=== PATIENT | female | born 1955 | race Caucasian/White ===

== ENCOUNTER → 2016-12-10 | Outpatient (CLI) | payer BC ==
--- NOTE | 2016-12-10 09:25 | MM ---
Reason for exam: additional evaluation requested from prior study. Last mammogram was performed 1 year ago. History: Patient is postmenopausal and has history of breast cancer at age 44. Family history of breast cancer in daughter at age 41. Benign lumpectomy of the right breast, April 25, 2001. Stereotactic core biopsy of the right breast, April 13, 2001. Core biopsy of the right breast. Radiation therapy of the right breast. Took tamoxifen for 5 years beginning at age 45. Physical Findings: Nurse did not find any significant physical abnormalities on exam. MG 3D Diag Mammo W/Cad ROSE Bilateral CC and MLO view(s) were taken. ML, spot compression CC, and spot compression MLO view(s) were taken of the left breast. Prior study comparison: December 11, 2015, bilateral MG diagnostic mammo w CAD ROSE. December 09, 2014, bilateral MG screening mammo w CAD. The breast tissue is heterogeneously dense. This may lower the sensitivity of mammography. No suspicious abnormality. Right post surgical change. No significant new findings when compared with previous films. These results were verbally communicated with the patient and result sheet given to the patient on 12/10/16. ASSESSMENT: Incomplete: need additional imaging evaluation, BI-RAD 0 RECOMMENDATION: Ultrasound of the right breast. (targeted for new focal asymmetry)
--- NOTE | 2016-12-10 09:28 | USB ---
Reason for exam: additional evaluation requested from abnormal screening. History: Patient is postmenopausal and has history of breast cancer at age 44. Family history of breast cancer in daughter at age 41. Benign lumpectomy of the right breast, April 25, 2001. Stereotactic core biopsy of the right breast, April 13, 2001. Core biopsy of the right breast. Radiation therapy of the right breast. Took tamoxifen for 5 years beginning at age 45. US Breast RT Right breast ultrasound includes all four quadrants, the retroareolar region and axilla. Finding demonstrates a 5 x 4 x 3mm irregular, solid, hypoechoic lesion with shadowing at 10 o'clock. These results were verbally communicated with the patient and result sheet given to the patient on 12/10/16. ASSESSMENT: Suspicious, BI-RAD 4 RECOMMENDATION: Ultrasound core biopsy of the right breast. Called Dr. Bourgeois with mammographic findings and has scheduled an appointment for the patient for 12/30/16 at 10:[address] Smith. Right ultrasound core biopsy scheduled for 12/16/16 at 8:00. PRELIMINARY REPORT CALLED AND FAXED TO DR. SMITH ON 12/10/16/TP.
== END | disposition home or self-care (01) ==
LOC: RADMAMWWP 06:51
PROVIDERS: ATTEND Obstetrics & Gynecology
DX: N64.4 Mastodynia (principal); Z85.3 Personal history of malignant neoplasm of breast; Z80.3 Family history of malignant neoplasm of breast
CPT/HCPCS: 76641; G0204; G0279

== ENCOUNTER → 2016-12-13 | Outpatient (CLI) | payer BC ==
--- NOTE | 2016-12-13 12:00 | BD ---
EXAMINATION TYPE: MG DEXA axial skeleton. DATE OF EXAM: 12/13/2016 CLINICAL HISTORY: Postmenopausal female. Height: 66.5 Weight: 149 FRAX RISK QUESTIONS: Alcohol (3 or more units per day): no Family History (Parent hip fracture): no Glucocorticoids (More than 3mos): not now (Ex: prednisone, prednisolone, methylprednisolone, dexamethasone, and hydrocortisone). History of Fracture in Adulthood: no Secondary Osteoporosis: 1. Type 1 Diabetes: no 2. Hyperthyroidism: no 3. Menopause before 45: no, 46 4. Malnutrition: no 5. Chronic liver disease: no Rheumatoid Arthritis: no Current Tobacco Use: no RISK FACTORS HISTORY OF: Surgery to Spine: yes When: in early 20's for herniated disc L5/sacrum Family History of Osteoporosis: no Active: yes Diet low in dairy products/other sources of calcium: at least one serving a day Postmenopausal woman: yes Take estrogen and/or progesterone medications: no Lost more than 2 inches in height since high school: no Frequent falls: no Poor Health: no Hyperparathyroidism: no Adrenal Insufficiency: no MEDICATIONS: Prednisone or other steroids: not now How Long: about 18 months Thyroid Medications: no Osteoporosis Medications: no Additional Medications: Lantus pen, Humalog pen, metformin, Januvia, benazepril, atorvastatin, fenofi brate Additional History: Breast CA age 44; Antineoplastic age 46-50, Type II Diabetic, polymyalgia rheumat ica EXAM MEASUREMENTS: Bone mineral densitometry was performed using the [employer] System. Bone mineral density as measured about the Lumbar spine is: ----- L1-L4(G/cm2): 1.181 T Score Values are as follows: ----- L2: 0.1 ----- L3: 0.9 ----- L4: -0.7 ----- L1-L4: 0.0 Bone mineral density BASELINE Bone mineral density about the R hip (g/cm2): 0.841 Bone mineral density about the L hip (g/cm2): 0.863 T Score values are as follows: -----R Neck: -1.4 -----L Neck: -1.3 -----R Total: -0.4 -----L Total: -0.5 Bone mineral density BASELINE IMPRESSION: Osteopenia (T Score between -2.5 and -1) as noted by T score values There is slightly increased risk of fracture and the patient may be considered for treatment. Re-Screen 2-5 years. NOTE: T-SCORE=SD OF THE YOUNG ADULT MEAN.
== END | disposition home or self-care (01) ==
LOC: RADBDWWP 07:11
PROVIDERS: ATTEND Family Medicine
DX: M85.88 Other specified disorders of bone density and structure, other site (principal); Z78.0 Asymptomatic menopausal state
CPT/HCPCS: 77080

== ENCOUNTER → 2016-12-16 | Day surgery (SDC) | payer BC ==
[2016-12-16 07:33] VITALS: RESP 16; BMI 23.1
[2016-12-16 09:16] VITALS: BP 129/72; PULSE 89; TEMP 97.9
--- NOTE | 2016-12-16 09:58 | USB ---
EXAMINATION TYPE: US biopsy breast VAD RT, MG diagnostic mammo RT wo CAD DATE OF EXAM: 12/16/2016 CLINICAL HISTORY: R92.8 ABN Mammogram. TECHNIQUE: Ultrasound guided core biopsy of right breast. COMPARISON: Prior mammograms and ultrasounds. FINDINGS: The procedure of ultrasound guided core biopsy was explained to the patient. Benefits, alternatives, and risks were discussed. An informed consent was then obtained. Preprocedural scanning demonstrates a 0.4 x 0.3 cm hypoechoic shadowing mass. Additional similar appearing hypoechoic shadowing mass seen approximately 2 cm medial was present measuring 3 x 3 mm. The patient was placed in supine positioning for imaging and for the procedure. The overlying skin was prepped and draped in usual sterile fashion. 20 cc of 1% lidocaine without epinephrine was used as anesthetic into the skin and 10 cc of lidocaine with epinephrine was utilized as anesthetic into the subcutaneous tissue up to area of concern in the right breast. A clyde was made with surgical scalpel. Under ultrasound guidance, a 12-gauge vacuum assisted biopsy gun device was used to obtain 6 core samples. Following this, a biopsy coil-shaped biopsy marker was left in lesion. The patient tolerated the procedure well without any immediate complication. The patient was kept in the radiology department for short stay after the procedure and then discharged home in stable condition. Postprocedural 2 view mammogram was obtained demonstrating appropriate placement of the biopsy marker. IMPRESSION: 1. Successful, uncomplicated ultrasound guided core biopsy of a highly suspicious shadowing irregular mass in the right breast with adjacent 3 mm similar appearing mass, full pathology results to follow. Recommendations for the second mass will be based on the biopsy results of the biopsied index mass. Pathology Results: Benign BREAST, RIGHT, ULTRASOUND GUIDED CORE BIOPSY: BENIGN BREAST WITH DENSE STROMAL FIBROSIS, FOCAL DUCT HYPERPLASIA AND CALCIFICATIONS. FOCAL MULTINUCLEATED GIANT CELLS. Recommendation Follow up mammogram and ultrasound of the right breast in 6 months. RAIN
== END ==
LOC: RADUSWWP 06:53
PROVIDERS: ATTEND Surgery
DX: N60.31 Fibrosclerosis of right breast (principal); R92.1 Mammographic calcification found on diagnostic imaging of breast; R92.8 Other abnormal and inconclusive findings on diagnostic imaging of breast; Z92.3 Personal history of irradiation
CPT/HCPCS: 88305; 19083; G0206; A4648; J2001

== ENCOUNTER → 2017-06-16 | Outpatient (CLI) | payer BC ==
--- NOTE | 2017-06-16 10:34 | MM ---
Reason for exam: follow-up at short interval from prior study. Last mammogram was performed 6 months ago. History: Patient is postmenopausal and has history of breast cancer at age 44. Family history of breast cancer in daughter at age 41. Benign US biopsy breast VAD RT of the right breast, December 16, 2016. Benign lumpectomy of the right breast, April 25, 2001. Stereotactic core biopsy of the right breast, April 13, 2001. Core biopsy of the right breast. Radiation therapy of the right breast. Took tamoxifen for 5 years beginning at age 45. Physical Findings: Nurse did not find any significant physical abnormalities on exam. MG 3D Diag Mammo W/Cad RT CC and MLO view(s) were taken of the right breast. Prior study comparison: December 16, 2016, right breast MG diagnostic mammo RT wo CAD. December 10, 2016, bilateral MG 3d diag mammo w/cad ROSE. December 10, 2016, right breast US breast RT. December 11, 2015, bilateral MG diagnostic mammo w CAD ROSE. December 09, 2014, bilateral MG screening mammo w CAD. The breast tissue is heterogeneously dense. This may lower the sensitivity of mammography. Finding #1: Architectural distortion in the lower inner quadrant, posterior position of the right breast. Finding #2: There are typically benign vascular, round calcifications in the right breast. Previous mammotome biopsy in the right breast. There is no discrete abnormality. These results were verbally communicated with the patient and result sheet given to the patient on 06/16/17. ASSESSMENT: Benign, BI-RAD 2 RECOMMENDATION: Follow-up diagnostic mammogram of both breasts in 6 months. Back on schedule.
--- NOTE | 2017-06-16 10:34 | USB ---
Reason for exam: follow-up at short interval from prior study. History: Patient is postmenopausal and has history of breast cancer at age 44. Family history of breast cancer in daughter at age 41. Benign US biopsy breast VAD RT of the right breast, December 16, 2016. Benign lumpectomy of the right breast, April 25, 2001. Stereotactic core biopsy of the right breast, April 13, 2001. Core biopsy of the right breast. Radiation therapy of the right breast. Took tamoxifen for 5 years beginning at age 45. US Breast RT Right breast ultrasound includes all four quadrants, the retroareolar region and axilla. Finding demonstrates a 0.4 x 0.1 x 0.2cm lesion too small to characterize at 10 o'clock. These results were verbally communicated with the patient and result sheet given to the patient on 06/16/17. ASSESSMENT: Benign, BI-RAD 2 RECOMMENDATION: Follow-up diagnostic mammogram of both breasts in 6 months. Back on schedule.
== END | disposition home or self-care (01) ==
LOC: RADMAMWWP 08:48
PROVIDERS: ATTEND Surgery
DX: R92.8 Other abnormal and inconclusive findings on diagnostic imaging of breast (principal)
CPT/HCPCS: 77065; 76641; G0279

== ENCOUNTER → 2018-01-12 | Outpatient (CLI) | payer BC ==
--- NOTE | 2018-01-12 14:19 | MM ---
Reason for exam: additional evaluation requested from prior study. Last mammogram was performed 7 months ago. History: Patient is postmenopausal and has history of breast cancer at age 44. Family history of breast cancer in daughter at age 41. Benign US biopsy breast VAD RT of the right breast, December 16, 2016. Benign lumpectomy of the right breast, April 25, 2001. Stereotactic core biopsy of the right breast, April 13, 2001. Core biopsy of the right breast. Radiation therapy of the right breast. Took tamoxifen for 5 years beginning at age 45. Physical Findings: Nurse did not find any significant physical abnormalities on exam. MG 3D Diag Mammo W/Cad ROSE Bilateral CC and MLO view(s) were taken. Prior study comparison: June 16, 2017, right breast MG 3d diag mammo w/cad RT. December 16, 2016, right breast MG diagnostic mammo RT wo CAD. The breast tissue is heterogeneously dense. This may lower the sensitivity of mammography. Previous mammotome biopsy in the right breast. Post surgical and post therapy changes in the right breast. No significant new findings when compared with previous films. These results were verbally communicated with the patient and result sheet given to the patient on 01/12/18. ASSESSMENT: Benign, BI-RAD 2 RECOMMENDATION: Routine screening mammogram of both breasts in 1 year.
--- NOTE | 2018-01-12 16:54 | US ---
EXAMINATION TYPE: US pelvic limited DATE OF EXAM: 01/12/2018 COMPARISON: NONE CLINICAL HISTORY: 62-year-old female R10.2 PELVIC AND PERINEAL PAIN. Left side pain. Total hysterect josh in2002. TECHNIQUE: Transabdominal (TA). Date of LMP: Hysterectomy FINDINGS: The uterus and ovaries are surgically absent. Bowel is seen in the bilateral adnexa. No free fluid in the pelvis. Bladder- Wnl. Bilateral jets seen. IMPRESSION: Status post hysterectomy and bilateral salpingo-oophorectomy. No evident adnexal abnormality or cul-d e-sac free fluid. Bladder shows no gross abnormality. Both ureteral jets are seen.
== END | disposition home or self-care (01) ==
LOC: RADUSWWP 12:06
PROVIDERS: ATTEND Family Medicine
DX: Z08 Encounter for follow-up examination after completed treatment for malignant neoplasm (principal); R10.2 Pelvic and perineal pain; Z85.3 Personal history of malignant neoplasm of breast; Z90.710 Acquired absence of both cervix and uterus; Z98.890 Other specified postprocedural states
CPT/HCPCS: 76857; 77062; 77066

== ENCOUNTER 2019-01-05 07:34 | Day surgery (SDC) | payer BC ==
[~2019-01-05 07:34] MED LIST: DEXAMETHASONE SOD PHOSPHATE 10 MG/ML 1 ML VIAL IV ONE; LACTATED RINGERS 1,000 ML IV SCH; LIDOCAINE 1% 20 ML VIAL (10MG/ML) FOR IV START INTRADERMA PRN
[2019-01-05 07:50] VITALS: RESP 16; TEMP 97.8
[2019-01-05 08:04] LABS: Glucose,Whole Blood 87 mg/dL (75-99)
[2019-01-05] MEDS ORDERED: DEXAMETHASONE SOD PHOSPHATE 10 MG/ML 1 ML VIAL IV ONE (08:05)
[2019-01-05] MEDS ORDERED: ONDANSETRON 4 MG/2 ML VIAL IVP ONE (08:05)
[2019-01-05] MEDS ORDERED: PROPOFOL 10 MG/ML 20 ML VIAL IV ONE (08:19)
[2019-01-05] MEDS ORDERED: LIDOCAINE 1% INJ 10MG/ML (20 ML MDV) ONE (08:19)
--- NOTE | 2019-01-05 08:33 | P.PCN ---
Date of Procedure: 01/05/19 Procedure(s) Performed: BRIEF HISTORY: Patient is a 63-year-old, pleasant female scheduled for an upper endoscopy as a part of evaluation of intermittent dysphagia to solids for the last 2 years duration. For the last 6 months he has been progressively getting worse and has symptoms almost on a daily basis. She is hence scheduled for an upper endoscopy with possible dilation today. PROCEDURE PERFORMED: Esophagogastroduodenoscopy with biopsy and dilation. PREOPERATIVE DIAGNOSIS: Progressive dysphagia to solids of 2 years duration. IV sedation per anesthesia. PROCEDURE: After informed consent was obtained, the patient was brought into the endoscopy unit. IV sedation was administered by Anesthesia under continuous monitoring. Initially the Olympus GIF-140 video endoscope was inserted into the mouth. Esophagus intubated without any difficulty. It was gradually advanced into the stomach and duodenum and carefully examined. The bulb and the second part of the duodenum appeared normal. The scope at this time was withdrawn to the stomach, adequately insufflated with air, and upon careful examination, mucosa of the antrum, body, cardia and the fundus appeared normal. The scope was then withdrawn into the esophagus. The GE junction was located at 39 cm from the incisors. There was a distal esophageal Schatzki's ring identified and this was dilated using 15-16.5 mm TTS balloon in a sequential fashion for 60 seconds. There was oozing noted at the end of dilation and hence further dilation was not performed. The rest of the esophagus appeared normal. There were no erosions or ulcerations seen, multiple biopsies were done from the distal esophagus to evaluate for years of age esophagitis and the patient tolerated the procedure well. IMPRESSION: 1. Distal esophageal Schatzki's ring status post balloon dilation using 15-16.5 mm TTS balloon as described above RECOMMENDATIONS: The findings of this examination were discussed with the patient as well as a family. She was advised to follow with the biopsy results. In the meantime she will remain on a clear liquid diet today. She'll be started on Prilosec 20 mg daily and will she'll be seen in office in 3-4 weeks.
[2019-01-05 08:56] VITALS: BP 122/63; PULSE 63
== END 2019-01-05 09:07 | disposition home or self-care (01) ==
LOC: ORWHC2ENDO 07:34
PROVIDERS: ATTEND Internal Medicine Gastroenterology
DX: K22.2 Esophageal obstruction (principal); K20.9 Esophagitis, unspecified; I10 Essential (primary) hypertension; E78.5 Hyperlipidemia, unspecified; E11.9 Type 2 diabetes mellitus without complications; Z88.5 Allergy status to narcotic agent; Z88.6 Allergy status to analgesic agent; Z88.8 Allergy status to other drugs, medicaments and biological substances; Z79.4 Long term (current) use of insulin; Z79.899 Other long term (current) drug therapy
CPT/HCPCS: 88305; 43239; 43249; J1100; J2405; J2001; J2704

== ENCOUNTER → 2019-01-17 | Outpatient (CLI) | payer BC ==
[2019-01-03 16:06] VITALS: BMI 22.2
--- NOTE | 2019-01-17 08:09 | MM ---
Reason for exam: additional evaluation requested from prior study. Last mammogram was performed 1 year ago. History: Patient is postmenopausal and has history of breast cancer at age 44. Family history of breast cancer in daughter at age 41. Benign US biopsy breast VAD RT of the right breast, December 16, 2016. Benign lumpectomy of the right breast, April 25, 2001. Stereotactic core biopsy of the right breast, April 13, 2001. Core biopsy of the right breast. Radiation therapy of the right breast. Took tamoxifen for 5 years beginning at age 45. Physical Findings: Nurse did not find any significant physical abnormalities on exam. MG 3D Diag Mammo W/Cad ROSE Bilateral CC and MLO view(s) were taken. Prior study comparison: January 12, 2018, bilateral MG 3d diag mammo w/cad ROSE. June 16, 2017, right breast MG 3d diag mammo w/cad RT. The breast tissue is heterogeneously dense. This may lower the sensitivity of mammography. Stable benign calcifications. There is no discrete abnormality. Stable post lumpectomy changes are stable. No significant new findings when compared with previous films. These results were verbally communicated with the patient and result sheet given to the patient on 01/17/19. ASSESSMENT: Benign, BI-RAD 2 RECOMMENDATION: Follow-up diagnostic mammogram of both breasts in 1 year.
== END ==
LOC: RADMAMWWP 07:00
PROVIDERS: ATTEND Family Medicine
DX: R92.8 Other abnormal and inconclusive findings on diagnostic imaging of breast (principal)
CPT/HCPCS: 77062; 77066

== ENCOUNTER → 2020-02-01 | Outpatient (CLI) | payer MEDICARE ==
--- NOTE | 2020-02-01 11:07 | MM ---
Reason for exam: additional evaluation requested from prior study. Last mammogram was performed 1 year ago. History: Patient is postmenopausal and has history of breast cancer at age 44. Family history of breast cancer in daughter at age 41. Benign US biopsy breast VAD RT of the right breast, December 16, 2016. Benign lumpectomy of the right breast, April 25, 2001. Stereotactic core biopsy of the right breast, April 13, 2001. Core biopsy of the right breast. Radiation therapy of the right breast. Took tamoxifen for 5 years beginning at age 45. Physical Findings: Nurse did not find any significant physical abnormalities on exam. MG 3D Diag Mammo W/Cad ROSE Bilateral CC and MLO view(s) were taken. Prior study comparison: January 17, 2019, bilateral MG 3d diag mammo w/cad ROSE. January 12, 2018, bilateral MG 3d diag mammo w/cad ROSE. The breast tissue is heterogeneously dense. This may lower the sensitivity of mammography. Previous mammotome biopsy in the right breast. Asymmetric breast tissue greater in the left breast. Post surgical changes in the right breast. No significant new findings when compared with previous films. These results were verbally communicated with the patient and result sheet given to the patient on 02/01/20. ASSESSMENT: Benign, BI-RAD 2 RECOMMENDATION: Routine screening mammogram of both breasts in 1 year.
--- NOTE | 2020-02-01 15:35 | BD ---
EXAMINATION TYPE: Axial Bone Density DATE OF EXAM: 02/01/2020 COMPARISON: NONE CLINICAL HISTORY: Height: 5 FT 6 1/2 IN Weight: 145 FRAX RISK QUESTIONS: Alcohol (3 or more units per day): NO Family History (Parent hip fracture): NO Glucocorticoids (More than 3mos): YES (Ex: prednisone, prednisolone, methylprednisolone, dexamethasone, and hydrocortisone). History of Fracture in Adulthood: NO Secondary Osteoporosis: 1. Type 1 Diabetes: NO 2. Hyperthyroidism: NO 3. Menopause before 45: AGE 46 4. Malnutrition: NO 5. Chronic liver disease: NO Rheumatoid Arthritis: NO Current Tobacco Use: NO RISK FACTORS HISTORY OF: Surgery to Spine/Hip(right/left)/Wrist (right/left): L5 S1 SURG When: IN HER 20S Family History of Osteoporosis: NO Active: YES Postmenopausal woman: TOTAL HYST AGE 47 Take estrogen and/or progesterone medications: TOOK HRT APPROX 3-5 YEARS BEFORE HYST MEDICATIONS: Additional Medications: METFORMIN, BLOOD PRESSURE MEDS, , ATORVASTATIN, INSULIN, Additional History: RT CARPAL TUNNEL SURG NOV 2019 . HISTORY OG BREAST CANCER WITH RADIATION EXAM MEASUREMENTS: Bone mineral densitometry was performed using the [employer] System. Bone mineral density as measured about the Lumbar spine is: ----- L1-L4(G/cm2): 1.234 T Score Values are as follows: ----- L2: 0.7 ----- L3: 0.0 ----- L4: 0.3 ----- L1-L4: 0.4 Bone mineral density has: INCREASED 2.6 % since study of: 2017 Bone mineral density about the R hip (g/cm2): 0.773 Bone mineral density about the L hip (g/cm2): 0.826 T Score values are as follows: -----R Neck: -1.9 -----L Neck: -1.5 -----R Total: -0.6 -----L Total: -0.7 Bone mineral density has: DECREASED -2.4 % since study of: 2017 IMPRESSION: Osteopenia (T Score between -2.5 and -1). There is slightly increased risk of fracture and the patient may be considered for treatment. Re-Screen 2-5 years. NOTE: T-SCORE=SD OF THE YOUNG ADULT MEAN.
== END | disposition home or self-care (01) ==
LOC: RADMAMWWP 09:28
PROVIDERS: ATTEND Obstetrics & Gynecology
DX: R92.8 Other abnormal and inconclusive findings on diagnostic imaging of breast (principal); Z13.820 Encounter for screening for osteoporosis; M85.80 Other specified disorders of bone density and structure, unspecified site
CPT/HCPCS: 77080; 77066; G0279; 77062

== ENCOUNTER 2020-09-14 11:00 | Emergency (ER) | payer MEDICARE ==
[2020-09-14 11:04] VITALS: BP 172/74; PULSE 77; RESP 18; TEMP 98.7
--- NOTE | 2020-09-14 11:48 | ED ---
ENT HPI - General Chief complaint: ENT Stated complaint: ENT Source: patient, EMS Mode of arrival: EMS - History of Present Illness Initial comments: 64-year-old female with history of esophageal foreign body and narrowing of the esophagus presents to emergency per the chief complaint of food stuck in her throat. Patient reports about one hour prior to arrival, she ate an egg followed by some duggan which caused her to have some impaction of the food in her esophagus. She states she attempted to drink some fluids but cannot. She was brought to the ED via EMS. Patient states during the EMS ride, her symptoms improved and she believes only her throat is scratched at this time. She had an esophageal dilation performed about [address] Hicks. She denies any chest pain or discomfort. Denies nausea. - Related Data Home Medications Medication Instructions Recorded Confirmed Atorvastatin [Lipitor] 80 mg PO DAILY 12/10/16 01/05/19 Benazepril HCl 20 mg PO HS 12/10/16 01/05/19 Biotin 10,000 mcg PO Q48H 12/10/16 01/05/19 Fenofibrate [Lofibra] 160 mg PO DAILY 12/10/16 01/05/19 Insulin Lispro [humaLOG Kwikpen] 2 - 4 unit SQ DAILY PRN 12/10/16 01/05/19 Multivitamins, Thera [Multivitamin 1 each PO DAILY 12/10/16 01/05/19 (formulary)] metFORMIN HCL 1,000 mg PO BID 12/10/16 01/05/19 sitaGLIPtin [Januvia] 100 mg PO HS 12/10/16 01/05/19 Insulin Glargine [Lantus] 22 units SQ HS 01/05/19 01/05/19 Allergies Allergy/AdvReac Type Severity Reaction Status Date / Time aspirin Allergy Anaphylaxis Verified 01/05/19 07:51 codeine Allergy Anaphylaxis Verified 01/05/19 07:51 ibuprofen [From Motrin] Allergy Anaphylaxis Verified 01/05/19 07:51 niacin Allergy Rapid Verified 01/05/19 07:51 Heart Rate Review of Systems ROS Statement: Those systems with pertinent positive or pertinent negative responses have been documented in the HPI. ROS Other: All systems not noted in ROS Statement are negative. Past Medical History Past Medical History: Diabetes Mellitus, Hyperlipidemia, Hypertension History of Any Multi-Drug Resistant Organisms: None Reported Past Surgical History: Back Surgery, Hysterectomy Additional Past Surgical History / Comment(s): lumpectomy right breast 2002, with radiation Past Anesthesia/Blood Transfusion Reactions: No Reported Reaction Past Psychological History: No Psychological Hx Reported Smoking Status: Never smoker Past Alcohol Use History: Occasional Past Drug Use History: None Reported General Exam Limitations: no limitations General appearance: alert, in no apparent distress Head exam: Present: atraumatic, normocephalic, normal inspection Eye exam: Present: normal appearance, PERRL, EOMI Pupils: Present: normal accommodation ENT exam: Present: normal exam, normal oropharynx, mucous membranes moist Neck exam: Present: normal inspection, full ROM. Absent: tenderness Respiratory exam: Present: normal lung sounds bilaterally. Absent: respiratory distress, wheezes, rales, rhonchi, stridor, chest wall tenderness, accessory mus tyrese use Cardiovascular Exam: Present: regular rate, normal rhythm, normal heart sounds. Absent: systolic murmur GI/Abdominal exam: Present: soft. Absent: distended, tenderness, guarding, rebound Extremities exam: Present: normal inspection, full ROM, normal capillary refill. Absent: tenderness, pedal edema, joint swelling Back exam: Present: normal inspection, full ROM. Absent: tenderness, CVA tenderness (R), CVA tenderness (L) Neurological exam: Present: alert, oriented X3 Psychiatric exam: Present: normal affect, normal mood Skin exam: Present: warm, dry, intact, normal color Course Vital Signs 09/14/20 11:02 Temperature 98.7 F Pulse Rate 77 Respiratory 18 Rate Blood Pressure 172/74 O2 Sat by Pulse 97 Oximetry Medical Decision Making - Medical Decision Making 64-year-old female with history of esophageal foreign body presents to emergency department with chief complaint of food stuck in her throat. Physical examination is unremarkable. No signs of any respiratory distress. I gave the patient soda and Jell-O. She ate it with without any difficulties. Patient reports the food felt like it was going all the way through to the stomach. She believes there is only a scratch in her throat at this time. I advised her to follow up with GI for repeat dilation and upper GI scope. She is understanding and agreeable. Patient will be discharged with outpatient follow-up. Case discussed with Dr. Rickie Wyman Clinical Impression: Throat discomfort Disposition: HOME SELF-CARE Condition: Stable Instructions (If sedation given, give patient instructions): Esophageal Foreign Body (ED) Additional Instructions: Follow-up with GI. Return to emergency department if symptoms worsen. Is patient prescribed a controlled substance at d/c from ED?: No Referrals: Jhoana Bush MD [Primary Care Provider] - 1-2 days Oxana Hicks MD [STAFF PHYSICIAN] - 1-2 days Time of Disposition: 11:48
== END 2020-09-14 11:53 | disposition home or self-care (01) ==
LOC: EC 11:00
DX: R07.0 Pain in throat (principal); E11.9 Type 2 diabetes mellitus without complications; E78.5 Hyperlipidemia, unspecified; I10 Essential (primary) hypertension; Z79.4 Long term (current) use of insulin
CPT/HCPCS: 99282

== ENCOUNTER 2020-10-08 07:02 | Day surgery (SDC) | payer MEDICARE ==
[~2020-10-08 07:02] MED LIST changes: -DEXAMETHASONE SOD PHOSPHATE 10 MG/ML 1 ML VIAL IV ONE; +LIDOCAINE 1% (10MG/ML) FOR IV START INTRADERMA PRN; -LIDOCAINE 1% 20 ML VIAL (10MG/ML) FOR IV START INTRADERMA PRN
[2020-10-08 07:44] VITALS: RESP 16; TEMP 97.1
[2020-10-08 07:55] LABS: Glucose,Whole Blood 91 mg/dL (75-99)
[2020-10-08] MEDS ORDERED: PROPOFOL 10 MG/ML 20 ML VIAL IV ONE (08:10)
[2020-10-08] MEDS ORDERED: LIDOCAINE 1% INJ 10MG/ML (20 ML MDV) ONE (08:10)
--- NOTE | 2020-10-08 08:23 | P.PCN ---
Date of Procedure: 10/08/20 Procedure(s) Performed: BRIEF HISTORY: Patient is a 65-year-old, pleasant, white female scheduled for an upper endoscopy as a part of evaluation of progressive dysphagia to solids for the last 2 months duration. She had an upper endoscopy with dilation in 2019 for the same symptoms and was noted to have a distal esophageal Schatzki's ring.. PROCEDURE PERFORMED: Esophagogastroduodenoscopy with balloon dilation and biopsy. PREOPERATIVE DIAGNOSIS: Progressive dysphagia to solids. IV sedation per anesthesia. PROCEDURE: After informed consent was obtained, the patient was brought into the endoscopy unit. IV sedation was administered by Anesthesia under continuous monitoring. Initially the Olympus GIF-140 video endoscope was inserted into the mouth. Esophagus intubated without any difficulty. It was gradually advanced into the stomach and duodenum and carefully examined. The bulb and the second part of the duodenum appeared normal. The scope at this time was withdrawn to the stomach, adequately insufflated with air, and upon careful examination, mucosa of the antrum, body, cardia and the fundus appeared normal. The scope was then withdrawn into the esophagus. Small hiatal hernia noted. The GE junction was located at 40 cm from the incisors. There was a distal esophageal stricture identified at the GE junction and this was dilated using 15 mm TTS balloon for 30 seconds. There was some oozing and mucosal tear noted post dilation. There was diffuse erosions noted in the distal esophagus consistent with LA grade B reflux esophagitis. There was a 5 mm GE junction polyp that was also biopsied. The rest of the esophagus appeared normal seen and the patient tolerated the procedure well. IMPRESSION: 1. Distal esophageal stricture status post balloon dilation 15 mm TTS balloon as described above. 2. LA grade B reflux esophagitis and small hiatal hernia 3. 5 mm GE junction polyp status post biopsy. RECOMMENDATIONS: The findings of this examination were discussed with the patient as well as a family.. She was advised to follow with the biopsy shows. In the meantime will increase the Prilosec to 40 mg daily and follow antireflux measures.
[2020-10-08 08:42] VITALS: BP 139/68; PULSE 66
== END 2020-10-08 08:59 | disposition home or self-care (01) ==
LOC: ORWHC2ENDO 07:02
PROVIDERS: ATTEND Internal Medicine Gastroenterology
DX: K29.50 Unspecified chronic gastritis without bleeding (principal); K44.9 Diaphragmatic hernia without obstruction or gangrene; K22.2 Esophageal obstruction; K21.00 Gastro-esophageal reflux disease with esophagitis, without bleeding; I10 Essential (primary) hypertension; E78.5 Hyperlipidemia, unspecified; E11.9 Type 2 diabetes mellitus without complications; Z85.3 Personal history of malignant neoplasm of breast; Z79.4 Long term (current) use of insulin; Z79.899 Other long term (current) drug therapy; Z88.6 Allergy status to analgesic agent; Z88.5 Allergy status to narcotic agent; Z88.8 Allergy status to other drugs, medicaments and biological substances
CPT/HCPCS: 88305; 43239; 43249; J2001; J2704; C1726

== ENCOUNTER 2020-11-14 07:52 | Day surgery (SDC) | payer MEDICARE ==
[2020-11-13 09:02] VITALS: BMI 22.7
[2020-11-14 08:31] VITALS: TEMP 97.6
[2020-11-14 08:31] LABS: Glucose,Whole Blood 106 mg/dL (75-99)
[2020-11-14] MEDS ORDERED: PROPOFOL 10 MG/ML 20 ML VIAL IV ONE (08:43)
--- NOTE | 2020-11-14 08:55 | P.PCN ---
Date of Procedure: 11/14/20 Procedure(s) Performed: BRIEF HISTORY: Patient is a 65-year-old pleasant female scheduled for an elective colonoscopy as a part of screening for colorectal neoplasia. PROCEDURE PERFORMED: Colonoscopy. PREOPERATIVE DIAGNOSIS: Screening for colon cancer. IV sedation per Anesthesia. PROCEDURE: After informed consent was obtained, the patient, was brought into the endoscopy unit. IV sedation was administered by Anesthesia under continuous monitoring. Digital rectal examination was normal. Initially the Olympus CF-160 flexible video colonoscope was then inserted in the rectum, gradually advanced into the cecum without any difficulty. Careful examination was performed as the scope was gradually being withdrawn. Ileocecal valve and the appendiceal orifice were visualized and appeared normal. Prep was excellent. Mucosa of the cecum, ascending colon, transverse colon, descending colon, sigmoid colon, and rectum appeared normal. Scattered sigmoid diverticulosis seen. Retroflexion was performed in the rectum and small internal hemorrhoids were seen. The patient tolerated the procedure well. IMPRESSION: Scattered sigmoid diverticulosis Small internal hemorrhoids RECOMMENDATIONS: Findings of this examination were discussed with the patien]as well as a family. She was advised to be a high-fiber diet and take fiber supplements a regular basis. She can have a repeat screening colonoscopy in 10 years
[2020-11-14 09:33] VITALS: BP 163/74; PULSE 75; RESP 18
== END 2020-11-14 09:36 | disposition home or self-care (01) ==
LOC: ORWHC2ENDO 07:52
PROVIDERS: ATTEND Internal Medicine Gastroenterology
DX: Z12.11 Encounter for screening for malignant neoplasm of colon (principal); K57.30 Diverticulosis of large intestine without perforation or abscess without bleeding; K64.8 Other hemorrhoids; Z79.899 Other long term (current) drug therapy; I10 Essential (primary) hypertension; E78.5 Hyperlipidemia, unspecified; E11.9 Type 2 diabetes mellitus without complications; K21.9 Gastro-esophageal reflux disease without esophagitis; Z79.4 Long term (current) use of insulin; Z90.710 Acquired absence of both cervix and uterus; Z85.3 Personal history of malignant neoplasm of breast; Z88.6 Allergy status to analgesic agent; Z88.5 Allergy status to narcotic agent
CPT/HCPCS: J2704; G0121

== ENCOUNTER → 2021-03-24 | Outpatient (CLI) | payer MEDICARE ==
--- NOTE | 2021-03-26 12:08 | MM ---
Reason for exam: screening (asymptomatic). Last mammogram was performed 1 year and 2 months ago. History: Patient is postmenopausal and has history of breast cancer at age 44. Family history of breast cancer in daughter at age 41. Benign US biopsy breast VAD RT of the right breast, December 16, 2016. Benign lumpectomy of the right breast, April 25, 2001. Stereotactic core biopsy of the right breast, April 13, 2001. Core biopsy of the right breast. Radiation therapy of the right breast. Took tamoxifen for 5 years beginning at age 45. Physical Findings: A clinical breast exam by your physician is recommended on an annual basis and results should be correlated with mammographic findings. MG 3D Screening Mammo W/Cad Bilateral CC and MLO view(s) were taken. Prior study comparison: February 01, 2020, bilateral MG 3d diag mammo w/cad [facility]. January 17, 2019, bilateral MG 3d diag mammo w/cad [facility]. The breast tissue is heterogeneously dense. This may lower the sensitivity of mammography. Previous mammotome biopsy in the right breast. Asymmetric breast tissue greater in the right breast. No significant changes when compared with prior studies. ASSESSMENT: Benign, BI-RAD 2 RECOMMENDATION: Routine screening mammogram of both breasts in 1 year.
== END | disposition home or self-care (01) ==
LOC: RADMAMWWP 15:42
PROVIDERS: ATTEND Obstetrics & Gynecology
DX: Z12.31 Encounter for screening mammogram for malignant neoplasm of breast (principal); Z80.3 Family history of malignant neoplasm of breast; Z85.3 Personal history of malignant neoplasm of breast; Z78.0 Asymptomatic menopausal state
CPT/HCPCS: 77063; 77067

== ENCOUNTER 2022-03-10 12:01 | Emergency (ER) | payer MEDICARE ==
[2022-03-10 12:20] VITALS: RESP 18; TEMP 98.2
--- NOTE | 2022-03-10 14:09 | ED ---
General Adult HPI - General Chief complaint: Extremity Problem,Nontraumatic Stated complaint: lump on left leg Time Seen by Provider: 03/10/22 13:06 Source: patient, RN notes reviewed, old records reviewed Mode of arrival: ambulatory Limitations: no limitations - History of Present Illness Initial comments: Patient is a 66-year-old female who presents emergency Department complaining of left pemberton swelling, pain that was somewhat onset today. States is improved at this time. States it is located over the anterior medial aspect of the left pemberton. Denies any shortness of breath, nausea, vomiting, abdominal pain, chest pain. No history of blood clots. Is not on blood thinners. States it was sudden in onset and they noticed that the [employer] appointment that occurred earlier today. She presents now for further evaluation. Denies any recent long distance travel. Does endorse some chest tightness but no other symptoms at this time. Denies any numbness or weakness. Presents for further evaluation. Denies any trauma. Does have a history of sciatica which she states is chronic and has had intermittently throughout the day today as well. - Related Data Home Medications Medication Instructions Recorded Confirmed Benazepril HCl 40 mg PO QAM 12/10/16 11/14/20 Fenofibrate [Lofibra] 160 mg PO QAM 12/10/16 11/13/20 Multivitamins, Thera [Multivitamin 1 each PO DAILY 12/10/16 11/13/20 (formulary)] metFORMIN HCL [Glucophage] 1,000 mg PO BID 12/10/16 11/13/20 Insulin Glargine [Lantus] 22 units SQ HS 01/05/19 11/13/20 Atorvastatin [Lipitor] 80 mg PO HS 10/06/20 11/13/20 Calcium Carbonate/Vitamin D3 1 cap PO DAILY 10/06/20 11/13/20 [Calcium 600 mg-D3 10 Mcg (400 Iu)] Insulin Lispro Rx Scale Form 1 dose SQ TID BETWEEN MEALS PRN 10/06/20 11/13/20 [humaLOG Outpatient Scale Rx Form] Latanoprost/Pf [Latanoprost 0.005% 1 drop BOTH EYES HS 10/06/20 11/13/20 Eye Drop] Omeprazole 20 mg PO DAILY PRN 10/06/20 11/13/20 Allergies Allergy/AdvReac Type Severity Reaction Status Date / Time aspirin Allergy Anaphylaxis Verified 03/10/22 12:20 codeine Allergy Anaphylaxis Verified 03/10/22 12:20 ibuprofen [From Motrin] Allergy Anaphylaxis Verified 03/10/22 12:20 niacin Allergy Rapid Verified 03/10/22 12:20 Heart Rate Review of Systems ROS Statement: Those systems with pertinent positive or pertinent negative responses have been documented in the HPI. Review of Systems: CONST: Denies fever EYES: Denies blurry vision ENT: Denies nasal congestion C/V: Denies Chest pain RESP: Denies shortness of breath GI: Denies abdominal pain : Denies dysuria SKIN: Denies rash. MSK: Endorses left pemberton swelling NEURO: Denies headache ROS Other: All systems not noted in ROS Statement are negative. Past Medical History Past Medical History: Cancer, Diabetes Mellitus, GERD/Reflux, Hyperlipidemia, Hypertension, Osteoarthritis (OA) Additional Past Medical History / Comment(s): IDDM. GLAUCOMA. RIGHT BREAST CANCER. History of Any Multi-Drug Resistant Organisms: None Reported Past Surgical History: Back Surgery, Hysterectomy Additional Past Surgical History / Comment(s): [facility] CARPAL TUNNEL. RIGHT TRIGGER (THUMB, RING FINGER). lumpectomy right breast 2001, with radiation Past Anesthesia/Blood Transfusion Reactions: No Reported Reaction Past Psychological History: No Psychological Hx Reported Smoking Status: Never smoker Past Alcohol Use History: None Reported Past Drug Use History: None Reported - Past Family History Mother Family Medical History: Cancer Daughter(s) Family Medical History: Cancer Father Family Medical History: Deep Vein Thrombosis (DVT), Myocardial Infarction (NM) Sister(s) Family Medical History: Cancer General Exam - General Exam Comments Initial Comments: General: Appears in no acute distress. HEAD: Normal with no signs of head trauma. EYES: EOMI ENT: Hearing grossly intact, normal oropharynx. RESPIRATORY: Clear breath sounds bilaterally. No wheezes, rales, or rhonchi. No hypoxia, no increased work of breathing. C/V: Regular rate and rhythm. S1 and S2 auscultated, no edema, peripheral pulses 2+ and intact throughout ABD: Nondistended EXT: Normal range of motion, no obvious deformity. Minimal tenderness to palpation located over the anterior midshaft tibia. SKIN: Minimal swelling to the medial anterior mid tibia. No pitting edema. No skin changes. No calf swelling. No calf tenderness. NEURO: Alert and oriented 4. No focal sensory strength deficits. Limitations: no limitations Course Vital Signs 03/10/22 03/10/22 12:18 15:21 Temperature 98.2 F Pulse Rate 83 76 Respiratory 18 18 Rate Blood Pressure 152/86 146/73 O2 Sat by Pulse 97 96 Oximetry Medical Decision Making - Medical Decision Making Based on the patient's presentation and physical exam, I'm concerned for possible bony or soft tissue injury to the patient's left pemberton. Cannot rule out DVT at this time. There is no concern for PE at this time. We will obtain a left lower extremity venous duplex as well as left tib-fib x-ray. She was in agreement this plan. Vital signs within acceptable limits. Patient was initially evaluated in triage. Patient's tib-fib x-ray as interpreted by myself reveals no acute traumatic process, no soft tissue injury, no fracture, no subluxation. Patient's left sided deep venous duplex evaluate for DVT reveals no signs of DVT. No other abnormality. On reevaluation, I did update the patient. She is feeling well at this time. Vital signs remained within acceptable limits. I believe it is safe for her to be discharged home. Strict return precautions were discussed. No known etiology for her swelling which has since resolved. She was in agreement this plan. I instructed the patient to follow up with their PCP in the next 1-3 days. . I explained that the patient should return to the emergency department if they experience any worsening symptoms. Strict return precautions were discussed with the patient. The patient expressed understanding of these instructions. I answered all questions that the patient had. The patient was discharged home in good condition with their prescriptions and follow up information. Disposition Clinical Impression: Leg swelling Disposition: HOME SELF-CARE Condition: Good Instructions (If sedation given, give patient instructions): Leg Pain (ED) Is patient prescribed a controlled substance at d/c from ED?: No Referrals: Jhoana Bush MD [Primary Care Provider] - 1-2 days Time of Disposition: 15:00
--- NOTE | 2022-03-10 14:19 | US ---
EXAMINATION TYPE: US venous doppler duplex LE LT DATE OF EXAM: 03/10/2022 2:03 PM COMPARISON: NONE CLINICAL HISTORY: tibial swelling, eval for dvt. No redness. No swelling at time of scan. Patient s tates a lump was on left lower leg with no injury and has gone down since. SIDE PERFORMED: Left TECHNIQUE: The lower extremity deep venous system is examined utilizing real time linear array sonog chester with graded compression, doppler sonography and color-flow sonography. VESSELS IMAGED: Common Femoral Vein Deep Femoral Vein Greater Saphenous Vein * Femoral Vein Popliteal Vein Small Saphenous Vein * Proximal Calf Veins (* superficial vessels) Left Leg: Negative for DVT No abnormality seen at area of concern. IMPRESSION: No evidence for DVT at this time.
--- NOTE | 2022-03-10 14:49 | XR ---
EXAMINATION TYPE: XR tibia fibula LT DATE OF EXAM: 03/10/2022 COMPARISON: NONE HISTORY: Pain and swelling TECHNIQUE: Two views are submitted. FINDINGS: The osseous structures are intact. The joint spaces are preserved. Soft tissue edema noted. There i s arthropathy of the knee joint. Soft tissue ossification posterior to the knee appears chronic. No d estructive changes. IMPRESSION: 1. No acute osseous abnormality.
[2022-03-10 15:22] VITALS: BP 146/73; PULSE 76
== END 2022-03-10 15:29 | disposition home or self-care (01) ==
LOC: EC 12:01
DX: M79.89 Other specified soft tissue disorders (principal); E11.9 Type 2 diabetes mellitus without complications; I10 Essential (primary) hypertension; E78.5 Hyperlipidemia, unspecified; K21.9 Gastro-esophageal reflux disease without esophagitis; M19.90 Unspecified osteoarthritis, unspecified site; Z79.4 Long term (current) use of insulin; Z79.899 Other long term (current) drug therapy; Z88.6 Allergy status to analgesic agent; Z88.5 Allergy status to narcotic agent; Z88.3 Allergy status to other anti-infective agents; Z79.84 Long term (current) use of oral hypoglycemic drugs
CPT/HCPCS: 99283; 99284

== ENCOUNTER → 2022-04-01 | Outpatient (CLI) | payer MEDICARE ==
--- NOTE | 2022-04-02 08:21 | MM ---
Reason for Exam: Screening (asymptomatic). Last screening mammogram was performed 12 month(s) ago. Patient History: Menarche at age 12. First Full-Term at age 20. Left ovary removed at age 46. Right ovary removed at age 46. Hysterectomy at age 46. Postmenopausal. Breast cancer, right, age 44. Previous chest radiation therapy at age 44. Tamoxifen for 5 years from age 45 until age 50. Core Biopsy on the Right side. 12/16/2016, Benign Core Biopsy on the right side. 04/25/2001, Benign Lumpectomy on the right side. 04/13/2001, Stereotactic Core Biopsy on the Right side. Radiation Therapy, right. Daughter had breast cancer, age 41. Prior Study Comparison: 01/17/2019 Bilateral Diagnostic Mammogram, [facility]. 02/01/2020 Bilateral Diagnostic Mammogram, [facility]. 03/24/2021 Bilateral Screening Mammogram, [facility]. Tissue Density: The breast tissue is heterogeneously dense. This may lower the sensitivity of mammography. Findings: Analyzed By CAD. There is bilateral vascular calcifications redemonstrated. Mammotome biopsy clip in the right breast is again seen. There is persistent surgical clips along with distortion inferior medial right breast and diminished size treatment change redemonstrated. There is no suspicious new group of microcalcifications or new suspicious mass in either breast. Overall Assessment: Benign, BI-RAD 2 Management: Screening Mammogram of both breasts in 1 year. A clinical breast exam by your physician is recommended on an annual basis and results should be correlated with mammographic findings. Electronically signed and approved by: Biju García M.D.
== END | disposition home or self-care (01) ==
LOC: RADMAMWWP 07:16
PROVIDERS: ATTEND Obstetrics & Gynecology
DX: Z12.31 Encounter for screening mammogram for malignant neoplasm of breast (principal); Z78.0 Asymptomatic menopausal state; Z80.3 Family history of malignant neoplasm of breast; Z85.3 Personal history of malignant neoplasm of breast; Z98.890 Other specified postprocedural states
CPT/HCPCS: 77063; 77067

== ENCOUNTER → 2022-07-21 | Outpatient (CLI) | payer MEDICARE ==
--- NOTE | 2022-07-21 17:37 | CT ---
EXAMINATION TYPE: CT abdomen pelvis wo/w con CT DLP: 1015.8 mGycm, Automated exposure control for dose reduction was used. DATE OF EXAM: 07/21/2022 5:12 PM COMPARISON: CT abdomen pelvis most recent from CLINICAL INDICATION:Female, 66 years old with history of R10.32 R11.0; LLQ cramping TECHNIQUE: Axial CT of the abdomen and pelvis. Sagittal and coronal reformats were created on a eyeQ workstation. Contrast used:70ml mL of Isovue 300 with IV Contrast, Oral contrast used: with Oral Contrast FINDINGS: LOWER CHEST: Unremarkable ABDOMEN LIVER: Unremarkable GALLBLADDER AND BILE DUCTS: Layering gallstones in the lumen. PANCREAS: Unremarkable. SPLEEN: Unremarkable. ADRENAL GLANDS: Unremarkable. KIDNEYS AND URETERS: No evidence of hydronephrosis or renal calculus. The ureters are unremarkable. PELVIS BLADDER: Unremarkable REPRODUCTIVE: Unremarkable. ABDOMEN & PELVIS STOMACH AND BOWEL: There is a second portion duodenal diverticulum.There are colonic diverticula pres ent, one of which has adjacent fat stranding changes. No organizing fluid collection or evidence of p neumoperitoneum. There is some circumferential wall thickening in this section measuring up to 7 mm. No evidence of obstruction. Appendix is normal. PERITONEUM/RETROPERITONEUM: No evidence of pneumoperitoneum or free fluid. VASCULATURE: No evidence of aortic aneurysm. MUSCULOSKELETAL: No acute osseous abnormalities LYMPH NODES: No gross evidence for lymphadenopathy. SOFT TISSUE/ABDOMINAL WALL: Unremarkable IMPRESSION: 1. Uncomplicated sigmoid colon diverticulitis. Colonoscopy recommended after resolution of symptoms to ensure there is no underlying mass. No organizing fluid collection or pneumoperitoneum. 2. Cholelithiasis.
== END | disposition home or self-care (01) ==
LOC: RADCTMAIN 15:08
PROVIDERS: ATTEND Family Medicine
DX: K80.20 Calculus of gallbladder without cholecystitis without obstruction (principal); K57.32 Diverticulitis of large intestine without perforation or abscess without bleeding; R11.0 Nausea
CPT/HCPCS: 82565; 84520; 74178; 36415; Q9967

== ENCOUNTER → 2023-04-20 | Outpatient (CLI) | payer MEDICARE ==
--- NOTE | 2023-04-22 | BD ---
EXAMINATION TYPE: Axial Bone Density DATE OF EXAM: 04/20/2023 CLINICAL HISTORY: 67 years old Female. ICD-10 CODE: M85.89 OTHER DISORDER OF BONE DENSITY Height: 5 ft 5 1/2 in Weight: 145 FRAX RISK QUESTIONS: Alcohol (3 or more units per day): no Family History (Parent hip fracture): no Glucocorticoids (More than 3mos): yes (Ex: prednisone, prednisolone, methylprednisolone, dexamethasone, and hydrocortisone). History of Fracture in Adulthood: no Secondary Osteoporosis: 1. Type 1 Diabetes: no 2. Hyperthyroidism: no 3. Menopause before 45: no 4. Malnutrition: no 5. Chronic liver disease: no Rheumatoid Arthritis: no Current Tobacco Use: no RISK FACTORS HISTORY OF: Surgery to Spine/Hip(right/left)/Wrist (right/left): sacrum When: 1989 Family History of Osteoporosis: no Active: no Diet low in dairy products/other sources of calcium: no Postmenopausal woman: yes Take estrogen and/or progesterone medications: none now Lost more than 2 inches in height since high school: yes Frequent falls: no Poor Health: good Hyperparathyroidism: no Adrenal Insufficiency: no MEDICATIONS: Additional Medications: metformin, Atorvastatin, cholesterol meds, acid reflux meds, Mag-Ox,blood pr essure meds Additional History: EXAM MEASUREMENTS: Bone mineral densitometry was performed using the StepOne System. Bone mineral density as measured about the Lumbar spine is: ----- L1-L4(G/cm2): 1.188 T Score Values are as follows: ----- L1: -0.8 ----- L2: 0.3 ----- L3: 0.3 ----- L4: 0.2 ----- L1-L4: 0.1 Z Score Values are as follows: ----- L1: 0.9 ----- L2: 1.9 ----- L3: 1.9 ----- L4: 1.8 ----- L1-L4: 1.7 Bone mineral density has: decreased -2.9 % since study of: 2019 Bone mineral density about the R hip (g/cm2): 0.761 Bone mineral density about the L hip (g/cm2): 0.768 T Score values are as follows: -----R Neck: -2.0 -----L Neck: -1.9 -----R Total: -1.4 -----L Total: -1.2 Z Score values are as follows: -----R Neck: -0.4 -----L Neck: -0.3 -----R Total: 0.0 -----L Total: 0.1 Bone mineral density has: decreased -8.9 % since study of: 2019 FRAX%s: The graph provided illustrates a 17.6 % chance for a major osteoporotic fx and a 3.7 % chance for the hips probability for fx in 10 years time. IMPRESSION: Osteopenia (T Score between -2.5 and -1). There is slightly increased risk of fracture and the patient may be considered for treatment. Re-Screen 2-5 years. NOTE: T-SCORE=SD OF THE YOUNG ADULT MEAN.
--- NOTE | 2023-04-22 15:21 | MM ---
Reason for Exam: Screening (asymptomatic). Last mammogram was performed 1 year(s) and 1 month(s) ago. Patient History: Menarche at age 12. First Full-Term at age 20. Left ovary removed at age 46. Right ovary removed at age 46. Hysterectomy at age 46. Postmenopausal. Breast cancer, right, age 44. Previous chest radiation therapy at age 44. Tamoxifen for 5 years from age 45 until age 50. Core Biopsy on the Right side. 12/16/2016, Benign Core Biopsy on the right side. 04/25/2001, Benign Lumpectomy on the right side. 04/13/2001, Stereotactic Core Biopsy on the Right side. Radiation Therapy, right. Daughter had breast cancer, age 41. Prior Study Comparison: 12/16/2016 Right Diagnostic Mammogram, [facility]. 06/16/2017 Right Diagnostic Mammogram, [facility]. 01/12/2018 Bilateral Diagnostic Mammogram, [facility]. 01/17/2019 Bilateral Diagnostic Mammogram, [facility]. 02/01/2020 Bilateral Diagnostic Mammogram, [facility]. 03/24/2021 Bilateral Screening Mammogram, [facility]. 04/01/2022 Bilateral MG 3D screening mammo w/cad, [facility]. Tissue Density: The breast tissue is heterogeneously dense. This may lower the sensitivity of mammography. Findings: Analyzed By CAD. Pattern appears symmetrical and stable. Left breast is larger than the right. Benign vascular calcifications present bilaterally. Vertebral clips are in the posterior medial right breast. No suspicious groups of microcalcifications, spiculated or lobular masses, architectural distortion or other secondary signs of malignancy are mammographically apparent. Overall Assessment: Benign, BI-RAD 2 Management: Screening Mammogram of both breasts in 1 year. A negative mammogram report should not preclude additional follow up of suspicious palpable abnormalities. Patient should continue monthly self breast exam. A clinical breast exam by your physician is recommended on an annual basis and results should be correlated with mammographic findings. Electronically signed and approved by: Boyd Jhaveri D.O. Radiologis
== END | disposition home or self-care (01) ==
LOC: RADMAMWWP 12:46
PROVIDERS: ATTEND Obstetrics & Gynecology
DX: Z12.31 Encounter for screening mammogram for malignant neoplasm of breast (principal); M85.89 Other specified disorders of bone density and structure, multiple sites; Z78.0 Asymptomatic menopausal state; Z80.3 Family history of malignant neoplasm of breast; Z85.3 Personal history of malignant neoplasm of breast
CPT/HCPCS: 77063; 77067; 77080

== ENCOUNTER → 2023-05-30 | Outpatient (CLI) | payer MEDICARE ==
[2023-05-30 16:11] LABS: ALT 19 U/L (8-44); AST 26 U/L (13-35); Albumin 4.6 g/dL (3.8-4.9); Albumin/Globulin Ratio 1.64 Ratio (1.60-3.17); Alkaline Phosphatase 84 U/L (41-126); Blood Urea Nitrogen 16.8 mg/dL (9.0-27.0); Calcium 10.6 mg/dL (8.7-10.3); Carbon Dioxide 23.4 mmol/L (21.6-31.8); Chloride 105 mmol/L (96-109); Globulin 2.8 g/dL (1.6-3.3); Glucose 126 mg/dL (70-110); Potassium 4.9 mmol/L (3.5-5.5); Sodium 143 mmol/L (135-145); Total Bilirubin 0.4 mg/dL (0.3-1.2); Total Protein 7.4 g/dL (6.2-8.2)
[2023-05-30 19:19] LABS: C-Peptide 4.27 ng/mL (0.81-3.85)
== END | disposition home or self-care (01) ==
LOC: LABWHC1 09:14
PROVIDERS: ATTEND Internal Medicine Endocrinology, Diabetes & Metabolism
DX: E11.65 Type 2 diabetes mellitus with hyperglycemia (principal)
CPT/HCPCS: 36415; 80053; 83519; 84681

== ENCOUNTER → 2024-05-08 | Outpatient (CLI) | payer MEDICARE ==
--- NOTE | 2024-05-08 08:22 | MM ---
Reason for Exam: Screening (asymptomatic). Last screening mammogram was performed 12 month(s) ago. Patient History: Menarche at age 12. First Full-Term at age 20. Left ovary removed at age 46. Right ovary removed at age 46. Hysterectomy at age 46. Postmenopausal. Breast cancer, right, age 44. Previous chest radiation therapy at age 44. Tamoxifen for 5 years from age 45 until age 50. Core Biopsy on the Right side. 12/16/2016, Benign Core Biopsy on the right side. 04/25/2001, Benign Lumpectomy on the right side. 04/13/2001, Stereotactic Core Biopsy on the Right side. Radiation Therapy, right. Daughter had breast cancer, age 41. Prior Study Comparison: 03/24/2021 Bilateral Screening Mammogram, [facility]. 04/01/2022 Bilateral MG 3D screening mammo w/cad, [facility]. 04/20/2023 Bilateral MG 3D screening mammo w/cad, [facility]. Tissue Density: The breasts are heterogeneously dense, which may obscure small masses. Findings: Analyzed By CAD. Postsurgical and posttreatment changes right breast. Microclip right breast from prior biopsy. Benign vascular and a few scattered benign round calcifications are noted on both sides. Areas of asymmetric density on the left are unchanged. There is no suspicious group of microcalcifications or new suspicious mass in either breast. Overall Assessment: Benign, BI-RAD 2 Management: Screening Mammogram of both breasts in 1 year. Patient should continue monthly self-breast exams. A clinical breast exam by your physician is recommended on an annual basis. This exam should not preclude additional follow-up of suspicious palpable abnormalities. [facility], , 05/08/2024 8:19 AM. Electronically signed and approved by: Carolyn Ca M.D. Radiologist
== END | disposition home or self-care (01) ==
LOC: RADMAMWWP 07:32
PROVIDERS: ATTEND Obstetrics & Gynecology
DX: Z12.31 Encounter for screening mammogram for malignant neoplasm of breast (principal); Z90.722 Acquired absence of ovaries, bilateral; Z78.0 Asymptomatic menopausal state; Z85.3 Personal history of malignant neoplasm of breast; Z80.3 Family history of malignant neoplasm of breast; R92.333 Mammographic heterogeneous density, bilateral breasts; Z98.82 Breast implant status; Z98.890 Other specified postprocedural states
CPT/HCPCS: 77063; 77067